=== PATIENT | male | born 1980 | race Caucasian/White ===

== ENCOUNTER 2017-02-10 17:00 | Inpatient (IN) | payer OTHER ==
[~2017-02-10] VITALS: Ht 177.8 cm; Wt 74.8 kg
--- NOTE | ~2017-02-10 | PN ---
Unit #: [id number] #: [id number] Patient: VICTOR M DOMINGUEZ [id number] [facility] [address] [place] [address] [id number] I MR#: [id number] NAME: VICTOR M DOMINGUEZ. ROOM: P211 Age: 36 Sex: M Admission Date: 02/11/2017 : 1980 Attending Physician: Akhil Elizabeth M.D. Admitting Physician: Akhil Elizabeth M.D. Primary Care Physician: Primary Care Physician Stefani DORADO PROGRESS NOTES DATE February 15, 2017 DISCUSSION Mr. Dominguez is a 36-year-old white male, who was seen today and chart was reviewed and the case was discussed with the staff. He has been anxious, withdrawn, and rather seclusive to himself. Meanwhile, he has been cooperative with the treatment recommendations and he has been taking the medications and tolerating them fairly well with no reported side effects. MENTAL STATUS EXAMINATION Young white male, who was casually dressed with fair personal hygiene and appears to be in no acute distress or discomfort. He was awake and alert on interaction with intact orientation. His mood is anxious with a congruent affect. His speech is slow and goal-directed. He denies any suicidal or homicidal ideations, and also denies any auditory or visual hallucinations. His insight and judgment remain slightly impaired. TREATMENT PLAN 1. We will continue him on his current medications and treatment protocol, and will monitor his response to the medications, and make further adjustments as needed. 2. We will continue to followup. Dictated by... Gerard Mendoza/kyung TD: 02/15/2017 12:48 JOB #: [id number] Unit #: [id number] #: [id number] Patient: VICTOR M DOMINGUEZ ESTRADA PROGRESS NOTES Page 1 of 1 X Akhil Elizabeth MD PROGRESS NOTE
--- NOTE | ~2017-02-10 | PN ---
Unit #: [id number] #: [id number] Patient: VICTOR M DOMINGUEZ [id number] [facility] [address] [place] [address] [id number] I MR#: [id number] NAME: VICTOR M DOMINGUEZ. ROOM: P211 Age: 36 Sex: M Admission Date: 02/11/2017 : 1980 Attending Physician: Akhil Elizabeth M.D. Admitting Physician: Akhil Elizabeth M.D. Primary Care Physician: Primary Care Physician Stefani DORADO PROGRESS NOTES DATE 02/13/2017 DISCUSSION Mr. Dominguez is a 36-year-old, white male who was seen today and chart was reviewed and case was discussed with the staff. He remains anxious, withdrawn, depressed and rather seclusive to himself. Meanwhile, he has been cooperative with treatment recommendations. He has been taking the medication and tolerating them fairly well with no reported side effects. MENTAL STATUS EXAM Young white male who was casually dressed with fair personal hygiene, appears to be in no acute distress or discomfort. He was awake and alert on interaction with intact orientation. His mood was anxious with congruent affect. He denies any suicidal or homicidal ideation. Also, denies any auditory or visual hallucinations. His insight and judgement remains slightly impaired. TREATMENT PLAN 1. We will continue him on his current medications and treatment protocol. We will monitor his response to the medication and make further adjustments as needed. 2. We will continue to follow up. Dictated by... Gerard Mendoza/chalo TD: 02/14/2017 00:21 JOB #: [id number] Unit #: [id number] #: [id number] Patient: VICTOR M DOMINGUEZ ESTRADA PROGRESS NOTES Page 1 of 1 X Akhil Elizabeth MD PROGRESS NOTE
--- NOTE | ~2017-02-10 | DS ---
Unit #: [id number] #: [id number] Patient: [facility] [id number] [facility] [address] [place] [address] [id number] MR#: [id number] NAME: VICTOR M DOMINGUEZ. ROOM: [facility] [place] Age: 36 Sex: M Admission Date: 02/11/2017 : 1980 Discharge Date: 02/16/2017 Attending Physician: Akhil Elizabeth M.D. Primary Care Physician: Primary Care Physician No DISCHARGE SUMMARY IDENTIFYING DATA Mr. Dominguez is a 36-year-old white male who is a resident of [place], [place] and was self-referred to the hospital on voluntary basis. HISTORY OF PRESENT ILLNESS Please see initial psychiatric evaluation. PAST PSYCHIATRIC HISTORY Please see initial psychiatric evaluation. PAST MEDICAL HISTORY Please see initial psychiatric evaluation. HOSPITAL COURSE The patient was admitted to the adult psychiatric and chemical dependency unit at [facility] j[facility] and was oriented to the hospital environment. Routine p.r.n. medications were initiated and started on the detox protocol and was closely monitored. Celexa as an antidepressant was also initiated and he was closely monitored. He was polite and pleasant and cooperative with treatment recommendations and was taking the medications regularly and was tolerating them fairly well and was able to show a decent therapeutic response to the medications and improvement in depression and anxiety and was denying any suicidal ideations, intent or plan and was wanting to go home and was willing to continue treatment on outpatient basis and as such he will be discharged home. Will continue treatment on outpatient basis. DISCHARGE DIAGNOSES PSYCHIATRIC: 1. Major depressive disorder, recurrent, moderate with psychotic features. 2. Opioid dependence, moderate, in acute withdrawal. MEDICAL: None. STRESSORS: Mild psychosocial stressors. DISCHARGE MEDICATIONS Celexa 20 mg daily for depression. CONDITION AT DISCHARGE Stable. Unit #: [id number] #: [id number] Patient: VICTOR M DOMINGUEZ CARSON [place]. Dictated by... Gerard Mendoza/john TD: 02/16/2017 22:44 JOB #: [id number] DISCHARGE SUMMARY Page 1 of 1 X Akhil Elizabeth MD X DISCHARGE SUMMARY
--- NOTE | ~2017-02-10 | PA ---
Unit #: [id number] #: [id number] Patient: VICTOR M DOMINGUEZ [id number] [facility] [address] [place] [address] [id number] I MR#: [id number] NAME: VICTOR M DOMINGUEZ. ROOM: P173 Age: 36 Sex: M Admission Date: 02/11/2017 : 1980 Date of Assessment: 02/12/2017 Attending Physician: Akhil Elizabeth M.D. Admitting Physician: Akhil Elizabeth M.D. Primary Care Physician: Primary Care Physician No PSYCHIATRIC ASSESSMENT DATE OF SERVICE 02/11/2017. IDENTIFYING DATA Mr. Dominguez is a 36-year-old white male, who is a resident of [place], [place] and was self-referred to the hospital on a voluntary basis. CHIEF COMPLAINT "I'm suicidal and I've a plan to hang myself." HISTORY OF PRESENT ILLNESS Mr. Dominguez is a 36-year-old white male with a history of mood disorder, who was self-referred to the hospital. Upon presentation, he stated that he is suicidal and he has a plan to hang himself and that he has felt suicidal for several days and he has been using heroin and he uses a gram of heroin on a daily basis. He also disclosed increasing depression, anxiety, irritability, restlessness, feelings of hopelessness and helplessness, suicidal ideation and poor social support system being homeless, and as such, he was seen to be a significant danger to himself, and recommendation for an inpatient level of care for safety and stabilization was made and the patient was stepped up to the inpatient unit. SUBSTANCE ABUSE HISTORY The patient reports a history of opioid abuse and dependence. He reports that he has been using a gram of heroin a day since he was 30 years old. PAST PSYCHIATRIC HISTORY The patient has not had any prior inpatient or outpatient psychiatric treatment. Review of the medical records indicates currently he is not active in any treatment program, is not seeing a psychiatrist, and is not taking any psychotropic medications. PAST MEDICAL HISTORY No acute or chronic medical illnesses. ALLERGIES No known medication allergies. CURRENT MEDICATIONS None. PERSONAL AND SOCIAL HISTORY Unit #: [id number] #: [id number] Patient: VICTOR M DOMINGUEZ A 36-year-old white male, who reports that he is single, unemployed and essentially homeless and has poor social support system. MENTAL STATUS EXAMINATION A young white male, who was casually dressed with a fair personal hygiene and appears to be in no acute distress or discomfort. He was awake and alert on interaction with intact orientation. His mood was anxious and depressed with a congruent affect. His speech was slow and restricted in content. He reports having suicidal ideations, but denies any homicidal ideations, and also denies any auditory or visual hallucinations. His insight and judgment remained significantly impaired. DIAGNOSTIC IMPRESSION Psychiatric: Major depressive disorder, recurrent, moderate, without psychotic features. Opioid dependence, moderate, in acute withdrawal. Medical: None. Stressors: Moderate psychosocial stressors. TREATMENT PLAN 1. The patient has presented with a history of substance abuse and mood disorder, and has been decompensating and will need inpatient hospitalization for safety and stabilization. We will start him back on his home medications. We will adjust the medications and monitor response. 2. Supportive therapy was provided to the patient. 3. Safe, structured, and nourishing environment will be provided. ESTIMATED LENGTH OF STAY 4 to 5 days. ABILITY TO HELP SELF Limited. WILLINGNESS TO HELP SELF The patient appears to be willing to help self. STRENGTHS 1. Communicative. 2. Cooperative. PROBLEMS 1. Chronic dysphoric symptoms. 2. Chronic chemical dependency. 3. Poor social support system. DISCHARGE CRITERIA This will be contingent upon the patient's ability to show resolution of his depression and anxiety and his ability to go through detox without having any significant withdrawal symptoms and his ability to stay safe to himself, particularly after discharge from the hospital. Dictated by... Akhil Elizabeth M.D. [facility]i Unit #: [id number] #: [id number] Patient: VICTOR M DOMINGUEZ TD: 02/12/2017 06:36 JOB #: [id number] PSYCHIATRIC ASSESSMENT Page 1 of 1 X Akhil Elizabeth MD PSYCHIATRIC ASSESSMENT
--- NOTE | ~2017-02-10 | PN ---
Unit #: [id number] #: [id number] Patient: VICTOR M DOMINGUEZ [id number] [facility] [address] [place] [address] [id number] I MR#: [id number] NAME: VICTOR M DOMINGUEZ. ROOM: P211 Age: 36 Sex: M Admission Date: 02/11/2017 : 1980 Attending Physician: Akhil Elizabeth M.D. Admitting Physician: Akhil Elizabeth M.D. Primary Care Physician: Primary Care Physician Stefani DORADO PROGRESS NOTES DATE 02/14/2017 DISCUSSION Mr. Dominguez is a 36-year-old white male who was seen today and chart was reviewed and case was discussed with the staff. He has been anxious, restless, withdrawn and seclusive to himself. At the same time has been very motivated towards getting Vivitrol injection. He has been taking medications and tolerating them fairly well with no reported side effects. MENTAL STATUS EXAMINATION Young white male who was casually dressed with fair personal hygiene and appears to be in no acute distress or discomfort. He was awake and alert on interaction with intact orientation. His mood was anxious with congruent affect. His speech is slow and goal-directed. He denies any suicidal or homicidal ideation and also denies any auditory or visual hallucinations. His insight and judgement remains slightly impaired. TREATMENT PLAN 1. Will continue his current medications and treatment protocol and will monitor his response to the medications and make further adjustments as needed. 2. Will continue to follow up. Dictated by... Gerard Mendoza/john TD: 02/14/2017 21:37 JOB #: [id number] Unit #: [id number] #: [id number] Patient: VICTOR M DOMINGEUZ ESTRADA PROGRESS NOTES Page 1 of 1 X Akhil Elizabeth MD PROGRESS NOTE
--- NOTE | ~2017-02-10 | A ---
[facility] Nutrition Therapy DATE: 02/13/17 Patient: VICTOR M HERNANDEZ Physician: AFAIRF Address: [address] [facility] Room/Bed: [address], Zip: [place] [address] Admit Date: 02/11/17 Date of : [birth year] Height: 5 10 Weight: [phone] NUTRITIONAL ASSESSMENT: REASON: UNINTENTIONAL WEIGHT LOSS PATIENT ADMITTED FOR SI AND HEROIN DETOX PMH: HEP C Anthropometrics: HT: 70", WT: 165#, BMI: 23.7, %IBW: 99 Labs: 02/12/17- NUTRITIONAL LABS WNL Meds: DESYREL, CELEXA, DETOX PROTOCOL, MVI Assessment: PATIENT IS A 36 Y/O MALE ADMITTED FOR SI AND HEROIN DETOX. PATIENT IS CURRENTLY UNEMPLOYED, HOMELESS, SMOKES 1 PPD, HAS DAILY HEROIN USE, A HX OF METH USE, AND HE HAS RECENTLY GONE THROUGH A DIVORCE. UPON ADMIT PATIENT STATED A POOR APPETITE WITH A 15# WEIGHT LOSS X WEEKS, AND HE HAS NOT BEEN SLEEPING. WEIGHT HX PER MEDITECH SHOWS A 10# WEIGHT LOSS X 1 YEAR. NURSING REPORTS GOOD PO INTAKES. THERE ARE NO SKIN OR GI ISSUES NOTED ATT. PATIENT'S NUTRITIONAL LABS ARE WNL AND HE IS 99% OF HIS IBW. CURRENT PSYCH MEDS MAY CAUSE AN INCREASED APPETITE. HE IS ON A REGULAR DIET WITH NO CAFFEINE. Dx: UNINTENTIONAL WEIGHT LOSS R/T CURRENT CONDITION, DRUG USE AEB SELF-REPORTED WEIGHT LOSS AND DECREASED APPETITE, NUTRITIONAL RISK POINT Intervention: REGULAR DIET, MEDS PER MD, DETOX, PSYCH Monitoring, Evaluation and Goals: 1. ADEQUATE PO INTAKES >50% OF MEALS 2. PREVENT, CORRECT MICRO/MACRO NUTRIENT DEFICIENCIES 3. WEIGHTS; MAINTAIN CURRENT WEIGHT, PREVENT WEIGHT LOSS MONITOR: WEIGHTS LABS, PO/FLUID INTAKES Recommendations: 1. CONTINUE REGULAR DIET WITH NO CAFFEINE TOLERATED. OFFER SNACKS BETWEEN MEALS 2. ENCOURAGE ADEQUATE PO AND FLUID INTAKES 3. OBTAIN WEIGHTS ROUTINELY (EVERY 3-4 DAYS) RD TO F/U PER PROTOCOL AND PRN R/T PATIENT MILDLY COMPROMISED [facility] Nutrition Therapy DATE: 02/13/17 Patient: VICTOR M HERNANDEZ Physician: AFAIRF Address: [address] [facility] Room/Bed: [address], Zip: [place] [address] Admit Date: 02/11/17 Date of : [birth year] Height: 5 10 Weight: [phone] Respectfully, GINI ROGER RD, LD [facility] cc: client file
--- NOTE | ~2017-02-10 | HP ---
Unit #: [id number] #: [id number] Patient: VICTOR M HERNANDEZ [id number] [place] [address] [id number] I MR#: [id number] NAME: VICTOR M HERNANDEZ. ROOM: 73 Age: 36 Sex: M Admission Date: 02/11/2017 : 1980 Attending Physician: Akhil Elizabeth M.D. Admitting Physician: Akhil Elizabeth M.D. Primary Care Physician: Primary Care Physician No HISTORY AND PHYSICAL HISTORY OF PRESENT ILLNESS Victor M is a 36 year old, admitted to [facility] because of his illicit substance abuse which includes heroin. PAST MEDICAL HISTORY 1. Long history of illicit substance abuse to include IV drugs. 2. Hepatitis C. PAST SURGICAL HISTORY Nothing reported. ALLERGIES No known drug allergies. SOCIAL HISTORY He smokes one pack per day, denies alcohol, admits to a history of opioid abuse to include, IV heroin. FAMILY HISTORY Medically noncontributory. REVIEW OF SYSTEMS CONSTITUTIONAL: No fever or chills. HEENT: Denies any sore throat, ear pain or runny nose. CARDIOVASCULAR: Denies chest pain, irregular heart rhythm or palpitations. CHEST: Denies shortness of breath or cough. No hemoptysis. GASTROINTESTINAL: Denies nausea, vomiting, diarrhea or chronic constipation. ENDOCRINE: Denies history of increased thirst or urination. No recent significant weight loss or gain. GENITOURINARY: Denies dysuria, frequency, or hematuria. SKIN: Denies any rashes. HEMATOLOGIC: Denies history of increased bleeding or bruising. MUSCULOSKELETAL: Denies any hot, swollen joints. No generalized muscle pain. NEUROLOGIC: Denies problems with vision or speech. No frequent, severe headaches. No numbness, tingling or weakness in any extremities. Denies loss of bladder or bowel control. CURRENT MEDICATIONS 1. Detox protocol 2. Celexa 20 mg daily Unit #: [id number] #: [id number] Patient: VICTOR M HERNANDEZ PHYSICAL EXAMINATION GENERAL: Alert, well-nourished, no apparent distress. VITAL SIGNS: Blood pressure 132/94, heart rate 100, respirations 16, and temperature 98.6. WEIGHT: 165 pounds. HEIGHT: 5 feet 10 inches. SKIN: Warm and dry without rash or lesion. HEENT: Normocephalic. TMs not viewed. Oral and nasal passages clear. Conjunctivae clear. PERRLA. EOMs intact. NECK: Supple without lymphadenopathy or thyromegaly. HEART: Regular rate and rhythm without murmur. LUNGS: Clear. ABDOMEN: Soft, nontender. : Not done. EXTREMITIES: No evidence of cyanosis, clubbing or edema. Moves all without focal deficit. NEUROLOGICAL: Grossly within normal limits. Cranial Nerves: II: Visual guillen are intact. III, IV AND : Extraocular movements are intact. Pupils are equal, round and reactive to light. V: Facial sensation is grossly normal. VII: Facial movements and expression are normal. VIII: Auditory acuity grossly intact. IX, X: Uvula is midline. Phonation is normal. XI: Patient shrugs shoulders and turns head normally. XII: Tongue protrudes in the midline. Sensory and Motor Function: Sensory and motor sensation is grossly normal. Motor: moves all extremities well. Coordination: Gait is normal. Deep Tendon Reflexes: Intact. IMPRESSION Psychiatric admission. RECOMMENDATIONS Psychiatric, per psychiatrist. MEDICAL I see no contraindications to participating in facility's activities. MEDICAL PROGNOSIS Good. MEDICAL CONDITION Stable. Dictated by... Savanah Baig PDevinABrittany. for Gerard Ellington/kyung TD: 02/12/2017 10:49 JOB #: [id number] Unit #: [id number] #: [id number] Patient: VICTOR M HERNANDEZ HISTORY AND PHYSICAL Page 1 of 1 X Savanah Baig X HISTORY AND PHYSICAL
--- NOTE | ~2017-02-10 | PN ---
Unit #: [id number] #: [id number] Patient: VICTOR M DOMINGUEZ [id number] [facility] [address] [place] [address] [id number] MR#: [id number] NAME: VICTOR M DOMINGUEZ. ROOM: 73 Age: 36 Sex: M Admission Date: 02/11/2017 : 1980 Attending Physician: Akhil Elizabeth M.D. Admitting Physician: Akhil Elizabeth M.D. Primary Care Physician: Primary Care Physician Stefani DUVALL NOTES DATE OF SERVICE 02/11/2017 DISCUSSION Mr. Dominguez is a 36-year-old white male who was seen today. Chart was reviewed and case was discussed with the staff. He has been anxious, withdrawn, and rather seclusive to himself. Meanwhile, he has been cooperative with the treatment recommendations and has been taking the medications and tolerating them fairly well with no reported side effects. MENTAL STATUS EXAMINATION Young white male who is casually dressed with fair personal hygiene, appears to be in no acute distress or discomfort. He was awake and alert on interaction with intact orientation. His mood is anxious with congruent affect. His speech is slow and goal-directed. He denies any suicidal or homicidal ideations. His insight and judgment remain slightly impaired. TREATMENT PLAN 1. We will continue him on his current medications and treatment protocol. We will monitor his response to the medications and make further adjustments as needed. 2. We will continue to follow up. Dictated by... Gerard Mendoza/larryg TD: 02/12/2017 12:36 JOB #: [id number] Unit #: [id number] #: [id number] Patient: VICTOR M DOMINGUEZ ESTRADA PROGRESS NOTES Page 1 of 1 X Akhil Elizabeth MD PROGRESS NOTE
[~2017-02-10 17:00] MED LIST: KEFLEX500 M2 PO
[2017-02-12 09:43] LABS: BASOPHIL# 0.1 X10e3 (0-0.3); BASOPHIL% 0.9 % (0-2.5); EOSINOPHIL# 0.1 X10e3 (0-0.7); EOSINOPHIL% 1.4 % (0.0-7.0); HEMATOCRIT 43.9 % (38.0-50.0); HEMOGLOBIN 14.7 gm/dL (13.0-16.0); LYMPHOCYTE# 2.3 X10e3 (1.0-3.5); LYMPHOCYTE% 37.5 % (17.0-45.0); MEAN CELL VOLUME 90.9 FL (83-96); MEAN CORPUSCULAR HEMOGLOBIN 30.5 PG (28-34); MEAN CORPUSCULAR HGB CONC 33.5 g/dL (30-36); MEAN PLATELET VOLUME 8.2 FL (6.5-11.5); MONOCYTE# 0.9 X10e3 (0-1.0); MONOCYTE% 15.2 % (3.0-12.0); NEUTROPHIL# 2.7 X10e3 (1.5-7.1); PLATELET COUNT 342 X10e3 (140-420); RED BLOOD COUNT 4.83 X10e (3.90-5.60); RED CELL DISTRIBUTION WIDTH 13.9 % (11.0-15.5)
[2017-02-12 09:45] LABS: DIFF IND NO
[2017-02-12 10:28] LABS: ALBUMIN SERUM 4.3 g/dL (3.5-5.0); BILIRUBIN,TOTAL 0.5 mg/dL (0.2-2.0); BUN/CREATININE RATIO 13.33; CALCIUM SERUM 9.6 mg/dL (8.4-10.2); CREATININE SERUM 0.9 mg/dL (0.6-1.4); GLOM FILT RATE Estimated 110.3 mL/min (>60); POTASSIUM 4.4 mmol/L (3.5-5.1); PROTEIN TOTAL SERUM 7.7 g/dL (6.0-8.3)
== END 2017-02-16 10:15 | disposition home or self-care (01) | DRG 885 ==
LOC: P1E 02-11 09:50 → P2S 02-11 09:50
PROVIDERS: Psychiatry & Neurology Psychiatry
PROC: HZ2ZZZZ Detoxification Services for Substance Abuse Treatment (ICD-10-PCS; principal; 2017-02-11)
DX: F33.1 Major depressive disorder, recurrent, moderate (principal); F11.23 Opioid dependence with withdrawal; F41.9 Anxiety disorder, unspecified; B19.20 Unspecified viral hepatitis C without hepatic coma; F17.210 Nicotine dependence, cigarettes, uncomplicated
CPT/HCPCS: 80053; 85025; 86592